=== PATIENT | female | born 1995 | race Caucasian/White ===

== ENCOUNTER 2020-10-17 03:55 | Emergency (ER) | payer MEDICAID ==
--- NOTE | 2020-10-17 04:40 | NUR ---
PT CALLED IN LOBBY AND OUTSIDE WITH NO ANSWER.
--- NOTE | 2020-10-17 04:55 | NUR ---
PATIENT CALLED IN LOBBY AND OUTSIDE WITH NO ANSWER. PATIENT LEFT WITHOUT BEING SEEN BY DR. CROSS. NO FURTHER CARE PROVIDED FOR PATIENT.
== END 2020-10-17 04:55 | disposition left against medical advice (07) ==
LOC: MED 03:55
DX: M25.569 Pain in unspecified knee (principal); Z53.21 Procedure and treatment not carried out due to patient leaving prior to being seen by health care provider